=== PATIENT | male | born 1975 | race Caucasian/White ===

== ENCOUNTER 2022-06-19 12:59 | Day surgery (SDC) | payer OTHER, SELFPAY ==
[2022-06-04 14:29] VITALS: BMI 23.7
--- NOTE | 2022-06-18 07:47 | PM.HPGS ---
History of Present Illness History of Present Illness Consent: Risks, benefits, and alternatives have been discussed and questions answered. Patient agrees to proceed with procedure. Chief complaint: Neoplasm Screening Narrative: Benjie Ruiz is a 47 year old male referred for colon cancer screening. Review of Systems Review of Systems: All systems reviewed & are unremarkable except as noted in HPI and below PMFSH Past Medical History Medical History Allergies Anxiety Asthma Family History Family History Mother Hypertension Family history of diabetes mellitus in first degree relative Diabetes mellitus Alzheimer disease Father Family history of lung cancer Social History Social History Smoking status: Never smoker Alcohol intake: current Alcohol use details: Pt drinks 5 drinks weekly. Substance use: never Substance use type: does not use Living arrangements: with family Spiritual care concerns: No Meds Home Medications and Allergies Home Medications Medication Instructions Recorded Confirmed Type albuterol sulfate 90 mcg/actuation 2 puff inhalation Q4-6H PRN Cough 09/27/19 06/19/22 History aerosol inhaler (Ventolin HFA) cetirizine 10 mg tablet (Zyrtec) 10 mg PO DAILY 07/02/21 06/19/22 History fluticasone propionate 50 2 spray intranasal DAILY 07/02/21 06/19/22 History mcg/actuation nasal spray,suspension montelukast 10 mg tablet 10 mg PO DAILY 03/11/22 06/19/22 History (Singulair) testosterone 50 mg/mL 150 mg IM WEEKLY 03/11/22 06/19/22 History intramuscular solution sodium sul 1.479 gram-potas ch See Rx Instructions PO PER PKG DIR 03/20/22 06/19/22 Rx 0.188 gram-magnes sul 0.225 gram #24 tabs tablet (Sutab) suvorexant 20 mg tablet (Belsomra) 20 mg PO QHS PRN Insomnia 06/04/22 06/19/22 History diazepam 5 mg tablet 5 mg PO QHS PRN anxiety #30 tabs 06/21/22 Rx Allergies Allergy/AdvReac Type Severity Reaction Status Date / Time amoxicillin Allergy Unknown Rash Verified 06/19/22 13:18 Penicillins Allergy Unknown Rash Verified 06/19/22 13:18 Exam Resp: Auscultation: clear to auscultation bilaterally Cardio: Rate: regular rate Rhythm: regular rhythm GI: GI Palp: Yes Soft to palpation and No Tenderness to palpation present (GI) Assessment and Plan Assessment and plan (1) Colon cancer screening: Code(s): Z12.11 - Encounter for screening for malignant neoplasm of colon Status: Acute Assessment and Plan: Colonoscopy with possible biopsy or polypectomy or cautery or injection of substances.
[2022-06-19 13:30] VITALS: BP 120/76; PULSE 73; RESP 20; TEMP 36.8; O2SAT 100
[2022-06-19] MEDS: LACTATED RINGERS 1,000 ML 150 ML IV CONT (13:39)
--- NOTE | 2022-06-19 14:11 | WPDANESEPPF ---
Anes - Initial Pre Proc Eval Procedure: Operation Date: 06/19/22 14:30 Proposed Procedures p Screening Colonoscopy - Jayden Valentino MD Date/Time: 06/19/22 14:11 Surgeon: Jayden Valentino MD Pre Op Diagnosis: Neoplasm Screening Patient Data Age: 47 Gender: M Height: 1.78 m Weight: 75 kg Last Vital Signs Temp 36.8 C 06/19/22 13:30 Pulse 73 06/19/22 13:30 Resp 20 06/19/22 13:30 BP 120/76 06/19/22 13:30 Pulse Ox 100 06/19/22 13:30 O2 Del Method Room Air 06/19/22 13:30 Allergies Allergy/AdvReac Type Severity Reaction Status Date / Time amoxicillin Allergy Unknown Rash Verified 06/19/22 13:18 Penicillins Allergy Unknown Rash Verified 06/19/22 13:18 Home Medications Medication Instructions Recorded Confirmed Type albuterol sulfate 90 mcg/actuation 2 puff inhalation Q4-6H PRN Cough 09/27/19 06/19/22 History aerosol inhaler (Ventolin HFA) cetirizine 10 mg tablet (Zyrtec) 10 mg PO DAILY 07/02/21 06/19/22 History fluticasone propionate 50 2 spray intranasal DAILY 07/02/21 06/19/22 History mcg/actuation nasal spray,suspension montelukast 10 mg tablet 10 mg PO DAILY 03/11/22 06/19/22 History (Singulair) testosterone 50 mg/mL 150 mg IM WEEKLY 03/11/22 06/19/22 History intramuscular solution sodium sul 1.479 gram-potas ch See Rx Instructions PO PER PKG DIR 03/20/22 06/19/22 Rx 0.188 gram-magnes sul 0.225 gram #24 tabs tablet (Sutab) diazepam 5 mg tablet 5 mg PO QHS PRN anxiety #30 tabs 05/17/22 06/19/22 Rx suvorexant 20 mg tablet (Belsomra) 20 mg PO QHS PRN Insomnia 06/04/22 06/19/22 History Patient hx anesthesia problems: none Family hx anesthesia problems: none Results Review: All pre-operative results and documents have been reviewed as part of the pre-operative evaluation. [facility] Past Medical History Medical History Allergies Anxiety Asthma Family History Family History Mother Hypertension Family history of diabetes mellitus in first degree relative Diabetes mellitus Alzheimer disease Father Family history of lung cancer Social History Social History Smoking status: Never smoker Alcohol intake: current Alcohol use details: Pt drinks 5 drinks weekly. Substance use: never Substance use type: does not use Living arrangements: with family Spiritual care concerns: No Anes - Eval Final PreProcedure Day of Procedure 06/19/22 14:11 Patient weight: normal Heart: regular rate and rhythm Lungs: clear to auscultation Airway: Mallampati scale class II Neurological: alert and oriented Last oral intake: >/= 8 hours ASA classification: II Emergent: no Anesthetic plan: proceed Anesthesia type and monitoring: general GIVS and standard monitoring Results Review: All pre-operative results and documents have been reviewed as part of the pre-operative evaluation. Informed Consent: The patient's anesthetic plan and its attendant risks and benefits were discussed with the patient/family/POA. Questions were solicited and answers provided to the satisfaction of the patient/family/POA.
[2022-06-19 14:38] VITALS: BP 114/68; PULSE 83; RESP 18; O2SAT 98
[2022-06-19 14:48] VITALS: BP 111/77; PULSE 79; RESP 20; O2SAT 100
--- NOTE | 2022-06-19 14:53 | WPDANESPN ---
Anes - Prog Note Post-Op Date/Time: 06/19/22 14:53 Cardiovascular status: normal Respiratory status: normal Airway patency: baseline Mental status: baseline Post-Op hydration status: normal Vital Signs: Last Vital Signs Temp 36.8 C 06/19/22 13:30 Pulse 79 06/19/22 14:48 Resp 20 06/19/22 14:48 BP 111/77 06/19/22 14:48 Pulse Ox 100 06/19/22 14:48 O2 Del Method Room Air 06/19/22 14:48 Pain Score (VAS): 0 I/O: Intake & Output 06/18/22 06/19/22 06/19/22 23:59 07:59 15:59 Intake Total 300 Balance 300 Patient Feedback: Patient satisfied with anesthetic care.
[2022-06-19 14:58] VITALS: BP 117/80; PULSE 71; RESP 20; O2SAT 98
== END 2022-06-19 15:07 | disposition home or self-care (01) ==
PROVIDERS: PCP Internal Medicine; Visit Provider Internal Medicine Gastroenterology
PROC: 0DJD8ZZ Inspection of Lower Intestinal Tract, Via Natural or Artificial Opening Endoscopic (ICD-10-PCS; CPT 45378; principal; 2022-06-19 14:30)
DX: Z12.11 Encounter for screening for malignant neoplasm of colon (principal)
CPT/HCPCS: 45378